=== PATIENT | male | born 1985 | race Caucasian/White ===

== ENCOUNTER → 2023-08-09 | Outpatient (REF) | LOC: M LAB 09:46 → EDBD 09:46 | PROVIDERS: ATTEND Nurse Practitioner Adult Health | DX: Z53.9 Procedure and treatment not carried out, unspecified reason (principal) ==

== ENCOUNTER → 2023-09-20 | Outpatient (REF) | LOC: M EMP 10:49 | PROVIDERS: ATTEND Family Medicine | DX: Z11.52 Encounter for screening for COVID-19 (principal) ==

== ENCOUNTER → 2023-09-20 | Outpatient (REF) | LOC: M EMP 08:42 | PROVIDERS: ATTEND Family Medicine | DX: Z11.52 Encounter for screening for COVID-19 (principal) ==

== ENCOUNTER → 2023-11-28 | Outpatient (REF) | LOC: M EMP 08:24 | PROVIDERS: ATTEND Family Medicine | DX: Z11.52 Encounter for screening for COVID-19 (principal) ==

== ENCOUNTER 2024-02-24 06:42 | Emergency (ER) | payer OTHER ==
[~2024-02-24] VITALS: Ht 177.8 cm; Wt 90.2 kg
[2024-02-24] MEDS ORDERED: RABIES IMMUNE GLOBULIN 1500 INTERNATIONAL UNIT/5ML VIAL IM.IMMUN ONE (07:00)
[2024-02-24] MEDS: RABIES VACCINE HUMAN 2.5 INTERNATIONAL UNITS/ML VIAL IM ONE (07:21)
[2024-02-24 10:09] VITALS: BP 132/76; TEMP 98.1; O2SAT 98
[2024-02-24] MEDS: RABIES IMMUNE GLOBULIN 300 INTERNATIONAL UNITS/1ML VIAL IM.IMMUN ONE (10:10)
[2024-02-24] MEDS: RABIES IMMUNE GLOBULIN 1500 INTERNATIONAL UNIT/5ML VIAL IM.IMMUN ONE (10:12)
== END 2024-02-24 10:23 | disposition home or self-care (01) ==
LOC: M ED 06:42
DX: Z20.3 Contact with and (suspected) exposure to rabies (principal); Z23 Encounter for immunization

== ENCOUNTER 2024-02-27 11:07 | Emergency (ER) | payer OTHER ==
[2024-02-27 11:19] VITALS: BP 133/88; TEMP 97.9; O2SAT 98
[2024-02-27] MEDS: RABIES VACCINE HUMAN 2.5 INTERNATIONAL UNITS/ML VIAL IM ONE (11:28)
== END 2024-02-27 11:35 | disposition home or self-care (01) ==
LOC: M ED 11:07
DX: Z20.3 Contact with and (suspected) exposure to rabies (principal); Z23 Encounter for immunization

== ENCOUNTER 2024-03-02 08:20 | Emergency (ER) | payer OTHER ==
[~2024-03-02] VITALS: Ht 177.8 cm; Wt 90.3 kg
[2024-03-02 08:21] VITALS: BP 135/82; TEMP 98; O2SAT 96
[2024-03-02] MEDS: ONDANSETRON 4MG ORAL DISINTEGRATING TAB PO ONE (08:42)
[2024-03-02] MEDS: RABIES VACCINE HUMAN 2.5 INTERNATIONAL UNITS/ML VIAL IM ONE (08:43)
== END 2024-03-02 08:55 | disposition home or self-care (01) ==
LOC: M ED 08:20
DX: Z20.3 Contact with and (suspected) exposure to rabies (principal); Z23 Encounter for immunization

== ENCOUNTER 2024-03-09 16:50 | Emergency (ER) | payer OTHER ==
[~2024-03-09] VITALS: Ht 177.8 cm; Wt 91.1 kg
[2024-03-09 16:50] VITALS: BP 120/67; TEMP 97.6; O2SAT 98
[2024-03-09] MEDS: RABIES VACCINE HUMAN 2.5 INTERNATIONAL UNITS/ML VIAL (IMOVAX) IM ONE (17:09)
== END 2024-03-09 17:15 | disposition home or self-care (01) ==
LOC: M ED 16:50
DX: Z20.3 Contact with and (suspected) exposure to rabies (principal); Z23 Encounter for immunization

== ENCOUNTER → 2024-03-18 | Outpatient (CLI) | payer OTHER ==
[2024-03-18 11:17] LABS: HEMATOCRIT 46.4 % (42.0-52.0); HEMOGLOBIN 15.4 g/dl (13.5-17.5); MEAN CORPUSCULAR HEMOGLOBIN 29.6 pg (27.0-33.0); MEAN CORPUSCULAR HGB CONC 33.2 g/dl (32.0-36.5); MEAN CORPUSCULAR VOLUME 89.2 fl (80.0-96.0); PLATELET COUNT, AUTOMATED 258 10^3/uL (150-450); WHITE BLOOD COUNT 5.2 10^3/uL (4.0-10.0)
[2024-03-18 11:34] LABS: HEMOGLOBIN A1c 5.1 % (4.0-6.0)
[2024-03-18 11:53] LABS: LIPASE 35 U/L (12-53); THYROID STIMULATING HORMONE 0.872 uIU/ML (0.55-4.78)
[2024-03-18 11:54] LABS: AMYLASE 68 U/L (30-118)
[2024-03-18 11:55] LABS: ALBUMIN 4.3 G/DL (3.2-5.2); ALKALINE PHOSPHATASE 60 U/L (46-116); ALT/SGPT 39 U/L (7.0-40); AST/SGOT 31 U/L (<34); BILIRUBIN,TOTAL 0.6 MG/DL (0.3-1.2); BLOOD UREA NITROGEN 21 MG/DL (9-23); CALCIUM LEVEL 9.5 MG/DL (8.5-10.1); CARBON DIOXIDE LEVEL 27 MMOL/L (20-31); CHLORIDE LEVEL 108 MMOL/L (98-107); CHOLESTEROL LEVEL 223 MG/DL (<200); CHOLESTEROL RISK RATIO 3.27 (<5); GLOMERULAR FILTRATION RATE > 60.0 (>60); GLUCOSE, FASTING 86 MG/DL (60-100); HDL CHOLESTEROL 68.1 MG/DL (>40); LDL CHOLESTEROL 127.1 MG/DL (<100); NON-HDL-C 154.9 MG/DL; POTASSIUM SERUM 4.6 MMOL/L (3.5-5.1); SODIUM LEVEL 140 MMOL/L (136-145); TOTAL PROTEIN 7.6 G/DL (5.7-8.2); TRIGLYCERIDES LEVEL 139 MG/DL (<150)
== END ==
LOC: M LAB 10:07
PROVIDERS: ATTEND Dermatology
DX: E07.9 Disorder of thyroid, unspecified (principal)

== ENCOUNTER → 2024-10-13 | Outpatient (CLI) | payer OTHER | LOC: M LAB 06:46 | PROVIDERS: ATTEND Nurse Practitioner Adult Health | DX: Z11.59 Encounter for screening for other viral diseases (principal); Z13.29 Encounter for screening for other suspected endocrine disorder ==